=== PATIENT | male | born 1975 | race Caucasian/White ===

== ENCOUNTER → 2023-08-19 | Outpatient (CLI) | payer BC ==
[~2023-08-19] MED LIST: FLEXERIL 1010 MG/TAB PO; GLUCOPHAGE XR500 M1 PO; GLYXAMBI1 TAB PO; PRINIVIL10 MG PO; ZOCOR 40MG40 MG PO; ZOFRAN ODT4 MG PO
== END ==
LOC: COL.RAD 06:53
DX: K76.0 Fatty (change of) liver, not elsewhere classified (principal)